=== PATIENT | female | born 1960 | race Caucasian/White ===

== ENCOUNTER 2017-12-29 09:40 | Emergency (ER) | payer OTHER ==
[~2017-12-29] VITALS: Ht 167.6 cm; Wt 76.7 kg
[~2017-12-29 09:40] MED LIST: ANTIVERT25 MG PO; IBUPROFEN 800800 M1 PO; IBUPROFEN 800800 MG PO; KEFLEX500 MG PO; KRILL OIL 1,001 EAC1 PO; NORCO 5-325 TA1 EACH PO; ONE-A-DAY WOMENS PO; VICODIN 5-5001 EACH PO
[2017-12-29] MEDS ORDERED: NAPROSYN500 MG PO (10:01)
[2017-12-29 10:40] LABS: ABSOLUTE EOSINOPHILS 0.1 thou/uL (0.0-0.7); ABSOLUTE LYMPHOCYTES 1.2 thou/uL (0.8-5.3); ABSOLUTE MONOCYTES 0.5 thou/uL (0.0-1.2); BASOPHILS 0.9 %; EOSINOPHILS 1.4 %; HEMATOCRIT 42.8 % (37.0-47.0); HEMOGLOBIN 14.6 gm/dL (12.0-15.0); LYMPHOCYTES 31.2 %; MCH 31.4 pg (26.0-34.0); MCHC 34.2 g/dL (28.0-37.0); MONOCYTES 12.4 %; MPV 8.9 fl. (7.2-11.1); NUCLEATED RBCS 0 /100WBC; PLATELET COUNT* 139 thou/uL (150-400); POLYS 54.1 %; RBC 4.66 mil/uL (4.20-5.00); RDW-CV 13.1 % (10.5-14.5); WBC 3.7 thou/uL (4.0-11.0)
[2017-12-29 10:40] LABS: URINE BILIRUBIN NEGATIVE (Negative); URINE BLOOD 2+ (Negative); URINE CLARITY CLEAR; URINE COLOR YELLOW; URINE GLUCOSE-RANDOM NEGATIVE (Negative); URINE KETONES NEGATIVE (Negative); URINE LEUKOCYTES-REFLEX NEGATIVE (Negative); URINE NITRITE-REFLEX NEGATIVE (Negative); URINE PROTEIN NEGATIVE (Negative); URINE UROBILINOGEN 0.2 E.U./dl (0.2-1.0)
[2017-12-29 10:46] LABS: ANION GAP 5 mmol/L (7-16); BUN 11 mg/dL (7-18); CALCIUM 8.2 mg/dL (8.5-10.1); CHLORIDE 103 mmol/L (98-107); CO2 28 mmol/L (21-32); CREATININE 0.6 mg/dL (0.6-1.3); GLUCOSE 98 mg/dL (70-99); POTASSIUM 3.7 mmol/L (3.5-5.1); SODIUM 136 mmol/L (136-145)
[2017-12-29 11:01] LABS: ALBUMIN 3.6 g/dL (3.4-5.0); ALKALINE PHOSPHATASE 78 U/L (46-116); NT-PRO BRAIN NAT PEPTIDE 120 pg/mL (<300); SGOT 16 U/L (15-37); SGPT 25 U/L (30-65); TOTAL BILIRUBIN 0.5 mg/dL (<0.1-1.0); TOTAL PROTEIN 7.7 g/dL (6.4-8.2); TROPONIN-I LEVEL <0.06 ng/mL (<0.06)
[2017-12-29 11:02] LABS: SQUAMOUS 4-10 Moderate /LPF (0-3); URINE WBC-REFLEX 0-5 Rare /HPF (0-5)
[2017-12-29 11:03] LABS: BACTERIA-REFLEX 1-9 Few /HPF (None Seen); URINE RBC 3-10 Few /HPF (0-2)
[2017-12-29 11:04] LABS: CASTS None Seen /LPF (None Seen); CRYSTALS None Seen /LPF (None Seen); MUCUS 0-3 Light strn/LPF (None Seen)
[2017-12-29] MEDS ORDERED: FLEXERIL PO (11:06)
[2017-12-29 11:28] VITALS: BP 125/87
--- NOTE | 2017-12-29 16:33 | EKG ---
[place] [address] ELECTROCARDIOGRAM REPORT Name: YULI SAL Room: [facility]#: [id number] Admission: 12/29/17 Attend Phys: Discharge: 12/29/17 Date of : 62 Report #: [id number] THIS REPORT FOR: //name// [facility] ED Test Date: 2017-12-29 Test Time: 10:00:56 Pat Name: YULI SAL Department: Room: Gender: F Psychiatric Nurse Practitioner: LESLEY : 1960 Requested By: Perez Ricardo Order Number: [id number] MD: Arjun Garcia Measurements Intervals [place] Rate: 67 P: 53 SD: 157 QRS: 60 QRSD: 87 T: 37 QT: 401 QTc: 424 Interpretive Statements Sinus rhythm Abnormal R-wave progression, early transition Compared to ECG 01/09/2017 13:10:24 ST (T wave) deviation no longer present Electronically Signed On 12-29-2017 16:33:01 CDT by Arjun Garcia [email or web address] <ELECTRONICALLY SIGNED> By: Arjun Garcia MD, [facility] 12/29/17 1633 1000 1000 Arjun Garcia MD, [facility] /EPI
== END 2017-12-29 11:30 | disposition home or self-care (01) ==
LOC: M.ERS 09:40
PROVIDERS: Nurse Practitioner Psychiatric/Mental Health
DX: M54.6 Pain in thoracic spine (principal); R05 Cough; F43.0 Acute stress reaction; F17.210 Nicotine dependence, cigarettes, uncomplicated; Z90.49 Acquired absence of other specified parts of digestive tract